=== PATIENT | female | born 1990 | race African-American/Black ===

== ENCOUNTER 2018-02-22 17:08 | Day surgery (SDC) | payer SELFPAY ==
[2018-02-22 17:45] VITALS: BMI 40.8
[2018-02-22 17:46] VITALS: BP 131/72; TEMP 98.5
[2018-02-22 19:18] LABS: Bilirubin Negative (Negative); Blood, Urine Negative (Negative); Clarity CLEAR (Clear); Glucose, Urine (Dipstick) 250 mg/dL (Negative); Leukocyte Small (Negative); Nitrite Positive (Negative); Protein, Urine (Dipstick) 300 mg/dL (Neg-Trace); Specific Gravity, Urine 1.018 (1.002-1.036); Urobilinogen 0.2 mg/dL (0.2-1.0); pH, Urine 6.5 (5.0-9.0)
[2018-02-22 19:20] LABS: Bacteria/HPF 4+ HPF (None Seen); Hyaline Casts/LPF 0-3 HYALINE CAST LPF (0-3 Hyaline); Pathc Cast-AUWi Flag 0.14 (0-2.49); Squamous Epithelial 0-3 HPF (0-3); WBC/HPF 21-50 HPF (0-3)
--- NOTE | 2018-02-23 00:24 | PRG ---
OB ER ENCOUNTER DATE OF SERVICE: 02/22/2018 PRIMARY OB: Dr. Shaheen Abbott. CHIEF COMPLAINT: Abdominal pressure and pelvic pressure. HISTORY OF PRESENT ILLNESS: The patient is a 28-year-old female with an intrauterine at 26 weeks and 3 days who is presenting to Labor and Delivery from work after experiencing pressure and discomfort that she remembers having prior to her delivery of an IUFD at 33 weeks. The patient reports that she was recently in the last few weeks treated for an infection thought that she was given 2 pills at once. The patient denies fever, denies headache, denies chest pain or shortnes s of breath. Denies nausea or vomiting, diarrhea or constipation. Denies rashes. Denies vaginal bl eeding or leakage of fluid, urinary urgency or frequency, hip problems, knee problems, muscle weaknes s. She reports that her abdominal pain is difficult to describe, but it is in her lower pelvis and u pper abdomen. She is unable to describe how frequently the contractions are felt, but again reports the sensation is something she remembers having with her loss and wanted to make sure everything was okay before she went home. PAST MEDICAL HISTORY: Type 2 diabetes. PAST SURGICAL HISTORY: Negative. SOCIAL HISTORY: Denies drug, alcohol or tobacco use. The patient works in the [employer] and lives in [place]. MEDICATIONS: Metformin and vitamins. OBSTETRIC HISTORY: She had a stillbirth at 33 weeks with a renal disorder. PAST SURGICAL HISTORY: Prior x1 for transverse lie. OB LABS: Unavailable at time of dictation. REVIEW OF SYSTEMS: Per HPI. PHYSICAL EXAMINATION: VITAL SIGNS: Blood pressure 131/72, pulse of 80, respiratory rate of 20, satting 99% on room air, te mperature 98.5. GENERAL: She appears to be in no acute distress. She is alert and oriented, cooperative and pleasan t to interact with. HEENT: Head is normocephalic. LUNGS: Clear to auscultation bilaterally. HEART: Regular rate and rhythm. ABDOMEN: Gravid and soft with minimal tenderness. EXTREMITIES: Nontender, nonedematous. PELVIC: Vulva is without mass lesions or erythema. Vagina is moist with a runny discharge. Cervix is visibly closed. fibronectin [employer]-3 were collected. Digital exam, cervix is closed and thick. LABORATORY DATA: UA was collected had 300 protein, glucose 250, negative ketones, positive nitrites, small leukocyte esterase, 21-50 white blood cells, 0-3 squamous cells, 4+ bacteria. [employer]-3 was positi ve for Trichomonas and for bacterial vaginosis negative for Trinity. heart tracing performed and fetus noted to have a baseline in the 140s with moderate long-term variability. Tocometer did not show any contraction pattern clearly visible. ASSESSMENT AND PLAN: The patient is a 28-year-old female with an intrauterine at 26 weeks and 3 days with no evidence of labor at this time; however, the patient does have clear urinary tract infection and will be given Macrobid 100 mg to be taken twice a day for the next 7 days. She also has Trichomonas and bacterial vaginosis and will be given Flagyl 500 mg to be given twice a day for the next 7 days. On history, she does sound her history is consistent with what sounds like a di agnosis of chlamydia and was treated. It is unclear whether she was treated for that time. The ben ent has been encouraged to contact him for clarity in her previous treatments. The patient has also been counseled that have her partner be tested and treated appropriately for these infections. The p atient is being discharged to home in stable condition. She has been given labor precautions .
== END 2018-02-22 20:45 | disposition home or self-care (01) ==
LOC: L&D/OP 17:08
PROVIDERS: ATTEND Obstetrics & Gynecology
DX: O99.89 Other specified diseases and conditions complicating pregnancy, childbirth and the puerperium (principal); R10.10 Upper abdominal pain, unspecified; R10.2 Pelvic and perineal pain; O24.112 Pre-existing type 2 diabetes mellitus, in pregnancy, second trimester; E11.9 Type 2 diabetes mellitus without complications; O23.42 Unspecified infection of urinary tract in pregnancy, second trimester; O98.312 Other infections with a predominantly sexual mode of transmission complicating pregnancy, second trimester; A59.01 Trichomonal vulvovaginitis; Z3A.26 26 weeks gestation of pregnancy; Z79.84 Long term (current) use of oral hypoglycemic drugs; Z79.899 Other long term (current) drug therapy
CPT/HCPCS: 81001; 87480; 87491; 87510; 87591; 87660; 99285